=== PATIENT | female | born 1990 | race Asian ===

== ENCOUNTER 2023-11-24 04:24 | Day surgery (SDC) | payer OTHER ==
[2023-11-19 14:10] VITALS: BMI 24.3
[2023-11-24] MEDS: ceFAZolin SODIUM 1 GM VIAL IVPB ONE
[2023-11-24] MEDS ORDERED: MIDAZOLAM HCL 2 MG/2 ML SINGLE DOSE VIAL ONE (10:27)
[2023-11-24] MEDS ORDERED: PROPOFOL 20 ML ONE (10:27)
[2023-11-24] MEDS ORDERED: ACETAMINOPHEN 325 MG TABLET (FP) PO PRN (11:07)
[2023-11-24] MEDS ORDERED: oxyCODONE HCL 5 MG TABLET PO PRN (11:07)
[2023-11-24] MEDS ORDERED: ONDANSETRON 4 MG/2 ML VIAL IVPUSH PRN (11:07)
[2023-11-24] MEDS ORDERED: IBUPROFEN 400 MG TABLET (FP) PO PRN (11:07)
[2023-11-24] MEDS ORDERED: KETOROLAC TROMETHAMINE 30 MG/1 ML VIAL ONE (11:51)
[2023-11-24] MEDS ORDERED: DEXAMETHASONE SOD PHOSPHATE 4 MG/1 ML VIAL ONE (11:51)
[2023-11-24] MEDS ORDERED: LACTATED RINGERS SOLUTION 1,000 ML IV SCH (12:00)
[2023-11-24 13:28] VITALS: RESP 20
[2023-11-24 13:59] VITALS: BP 119/75; PULSE 70; TEMP 98.6
== END 2023-11-24 14:06 | disposition home or self-care (01) ==
LOC: JASU-SURG 04:24
PROVIDERS: ATTEND Obstetrics & Gynecology
PROC: 0UB98ZZ Excision of Uterus, Via Natural or Artificial Opening Endoscopic (ICD-10-PCS; principal; 2023-11-24 11:00)
DX: N92.6 Irregular menstruation, unspecified (principal); N84.0 Polyp of corpus uteri
CPT/HCPCS: 81025; 88305-TC; 94760